=== PATIENT | female | born 1945 | race Caucasian/White ===

== ENCOUNTER 2018-07-06 16:00 | Emergency (ER) | payer MEDICARE ==
[2018-07-06] MEDS ORDERED: HYDROmorphone 0.5 MG/0.5 ML Syringe IVPUSH ONE (17:52)
[2018-07-06] MEDS ORDERED: Ondansetron 4 MG/2 ML SDV IVPUSH ONE (17:52)
[2018-07-06] MEDS ORDERED: Sodium Chloride 0.9% 1,000 ML IV SCH (18:00)
--- NOTE | 2018-07-06 18:29 | CRLCT ---
INDICATION: Abdominal pain and distension. TECHNIQUE: CT abdomen and pelvis without contrast. COMPARISON: None. FINDINGS: Lower chest: Coronary atherosclerosis. Small hiatal hernia with fluid in the distal esophagus suggesting gastroesophageal reflux. Bibasilar discoid atelectasis. Trace right pleural fluid. Liver: Normal in size and attenuation. No masses. Gallbladder and bile ducts: No stones or inflammation. No biliary dilatation. Pancreas: Unremarkable. No mass or inflammation. Spleen: Normal in size. No masses. Adrenal glands: Exophytic left adrenal lesion measuring 2.9 centimeters and 22 Hounsfield units. Kidneys: Bilateral renal cortical thinning without hydronephrosis. Several calcifications both kidneys consistent with nonobstructing nephrolithiasis. Bilateral renal cysts, largest on the left measures 14.2 centimeters. GI tract: The stomach is decompressed. There are loops of mid small bowel in the lower pelvis which are mildly dilated and there appear to be some loops which have some mild bowel wall thickening. Distal to this small bowel is decompressed. Transition point is not well seen on this unenhanced examination however small-bowel dilation appears to be somewhat abrupt both proximally and distally. The colon is decompressed. Note is made of a small amount of ascites. Diffuse haziness and edema is present within the mesentery of the dilated loops of bowel. Vasculature: Atherosclerosis without abdominal aortic aneurysm. Inferior vena cava filter noted. Lymph nodes: No lymphadenopathy. Abdominal wall/Omentum/Peritoneum: Fat containing paraumbilical hernia. Pelvis: Bladder unremarkable. Patient is status posthysterectomy. Bones: Bilateral hip osteoarthritis. Degenerative disc disease lumbar spine. IMPRESSION: 1. Dilated loops of mid small bowel within the low pelvis. A well-defined transition point is not seen, however caliber changes appear to be abrupt both proximally and distally. This combined with the small ascites and haziness in the mesentery of these bowel loops is suggestive of a high-grade, possibly closed loop, small bowel obstruction. 2. Small hiatal hernia with fluid in the distal esophagus suggesting gastroesophageal reflux. 3. Nonobstructing nephrolithiasis. 4. Indeterminate left adrenal nodule. Follow-up adrenal protocol CT recommended in 12 months. Please note that all CT scans at this facility use dose modulation, iterative reconstruction, and/or weight-based dosing when appropriate to reduce radiation dose to as low as reasonably achievable. Dictated by Brian Oconnell MD @ Jul 06 2018 6:16PM Signed by Dr. Brian Oconnell @ Jul 06 2018 6:27PM
--- NOTE | 2018-07-06 18:44 | EDM.PDOC ---
ED HPI GENERAL MEDICAL PROBLEM - General Chief Complaint: Abdominal Pain Stated Complaint: VOMITING,ABDOMINAL PAIN Time Seen by Provider: 07/06/18 17:35 Source of Information: Reports: Patient, Family History Limitations: Reports: No Limitations - History of Present Illness INITIAL COMMENTS - FREE TEXT/NARRATIVE: 72-year-old female with abdominal pain for the past 24 hours. She feels bloated and distended, has had several episodes of emesis. No diarrhea, says her bowels are moving. No chest pain. She has a history of a hysterectomy and appendectomy , no other surgeries. They are also "watching" and abdominal hernia. She's been prepared for dialysis and will have a surgery for a fistula in the left arm in the near future. She also missed her appointment today to check her INR level, she is on Coumadin because of a history of blood clots. Onset: Sudden Duration: Day(s): (Symptoms have been for 1 day, 24 hours) Location: Reports: Abdomen Severity: Moderate Improves with: Reports: None Worsens with: Reports: None Associated Symptoms: Reports: Nausea/Vomiting. Denies: Confusion, Chest Pain, Cough, Fever/Chills, Headaches, Shortness of Breath Abdomen Pain Score (Numeric/FACES): 10 - Related Data Allergies Allergy/AdvReac Type Severity Reaction Status Date / Time No Known Allergies Allergy Verified 07/06/18 17:12 Home Meds: Home Meds Citalopram Hydrobromide [Celexa] 20 mg PO QAM 04/17/13 [History] Metoprolol Tartrate [Lopressor] 50 mg PO BID 04/17/13 [History] Nitroglycerin [Minitran] 1 each TD QAM 04/17/13 [History] Omeprazole 20 mg PO QAM 04/17/13 [History] Simvastatin 40 mg PO BEDTIME 04/17/13 [History] Warfarin Sodium 1 tab PO ASDIRECTED 04/17/13 [History] Calcitriol 3 cap PO DAILY 07/06/18 [History] Cinacalcet [Sensipar] 30 mg PO DAILY 07/06/18 [History] Cyanocobalamin (Vitamin B-12) [Vitamin B-12] 2,000 mcg PO DAILY 07/06/18 [ History] Ergocalciferol (Vitamin D2) [Vitamin D2] 1 cap PO Q7D 07/06/18 [History] Ferrous Sulfate 325 mg PO TID 07/06/18 [History] Sodium Bicarbonate 2 tab PO TID 07/06/18 [History] Past Medical History Cardiovascular History: Reports: Blood Clots/VTE/DVT, Hypertension Gastrointestinal History: Reports: GERD Genitourinary History: Reports: Chronic Renal Insuffiency 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 (See Below) Other GAMBLING CASHIER History: hysterectomy Musculoskeletal History: Reports: Neck Pain, Chronic Neurological History: Reports: Other (See Below) Other Neuro History: neck fracture, no fusion Psychiatric History: Reports: Depression Endocrine/Metabolic History: Reports: Obesity/BMI 30+ Oncologic (Cancer) History: Reports: Uterine - Past Surgical History Head Surgeries/Procedures: Reports: None Cardiovascular Surgical History: Reports: None GI Surgical History: Reports: Appendectomy Female Surgical History: Reports: Other (See Below) Other Female Surgeries/Procedures: shunt placed Musculoskeletal Surgical History: Reports: None Oncologic Surgical History: Reports: Other (See Below) Other Oncologic Surgeries/Procedures: hysterctomy Social & Family History - Tobacco Use Smoking Status *Q: Never Smoker Second Hand Smoke Exposure: No - Caffeine Use Caffeine Use: Reports: Soda, Tea - Recreational Drug Use Recreational Drug Use: No ED ROS GENERAL - Review of Systems Review Of Systems: See Below Constitutional: Reports: Malaise, Decreased Appetite. Denies: Fever, Chills HEENT: Reports: No Symptoms Respiratory: Denies: Shortness of Breath, Cough Cardiovascular: Denies: Chest Pain GI/Abdominal: Reports: Abdominal Pain, Nausea, Vomiting. Denies: Constipation, Diarrhea : Reports: Other (Patient does make urine despite chronic renal failure) Skin: Reports: No Symptoms Neurological: Reports: No Symptoms ED EXAM, GI/ABD - Physical Exam Exam: See Below Exam Limited By: No Limitations General Appearance: Alert, Mild Distress (Patient is fairly uncomfortable) Eyes: Bilateral: Normal Appearance (No jaundice) Respiratory/Chest: No Respiratory Distress, Lungs Clear Cardiovascular: Regular Rate, Rhythm GI/Abdominal Exam: Tender (Diffuse tenderness to palpation with guarding), Abnormal Bowel Sounds (Bowel sounds are very hypoactive) Neurological: Alert, Oriented Course - Vital Signs Last Recorded V/S: Last Vital Signs Temp 96.3 F 07/06/18 19:35 Pulse 64 07/06/18 19:35 Resp 16 07/06/18 19:35 BP 90/56 L 07/06/18 19:35 Pulse Ox 97 07/06/18 19:35 - Orders/Labs/Meds Labs: Laboratory Tests 07/06/18 07/06/18 07/06/18 Range/Units 17:51 17:51 17:51 WBC 11.8 H (4.5-11.0) K/uL RBC 4.14 (3.30-5.50) M/uL Hgb 13.1 (12.0-15.0) g/dL Hct 42.6 (36.0-48.0) % MCV 103 H (80-98) fL MCH 32 H (27-31) pg MCHC 31 L (32-36) % Plt Count 144 L (150-400) K/uL Neut % (Auto) 89 H (36-66) % Lymph % (Auto) 6 L (24-44) % Bureau % (Auto) 4 (2-6) % Eos % (Auto) 0 L (2-4) % Baso % (Auto) 0 (0-1) % PT 16.3 H (9.5-12.0) sec INR 1.52 H D (0.80-1.20) Sodium 139 L (140-148) mmol/L Potassium 5.1 (3.6-5.2) mmol/L Chloride 107 (100-108) mmol/L Carbon Dioxide 16 L (21-32) mmol/L Anion Gap 21.1 H (5.0-14.0) mmol/L BUN 50 H (7-18) mg/dL Creatinine 3.8 H* (0.6-1.0) mg/dL Est Cr Clr Drug Dosing 10.04 mL/min Estimated GFR (MDRD) 12 L (>60) Glucose 291 H (74-106) mg/dL Calcium 10.7 H (8.5-10.1) mg/dL Total Bilirubin 0.3 (0.2-1.0) mg/dL AST 10 L (15-37) U/L ALT 12 (12-78) U/L Alkaline Phosphatase 88 (46-116) U/L Total Protein 6.6 (6.4-8.2) g/dL Albumin 2.8 L (3.4-5.0) g/dL Globulin 3.8 H (2.3-3.5) g/dL Albumin/Globulin Ratio 0.7 L (1.2-2.2) Amylase 51 (25-115) U/L Lipase 90 (73-393) U/L Meds: Medications Discontinued Medications Generic Name Dose Route Start Last Admin Trade Name Yolanda PRN Reason Stop Dose Admin Hydromorphone HCl 0.5 mg 07/06/18 17:52 07/06/18 18:46 Dilaudid IVPUSH 07/06/18 17:53 0.5 mg ONETIME ONE Administration Sodium Chloride 1,000 mls @ 250 mls/hr 07/06/18 18:00 07/06/18 18:56 Normal Saline IV 250 mls/hr ASDIRECTED JAYLEN Administration Ondansetron HCl 4 mg 07/06/18 17:52 07/06/18 18:49 Zofran IVPUSH 07/06/18 17:53 4 mg ONETIME ONE Administration - Re-Assessments/Exams Free Text/Narrative Re-Assessment/Exam: 07/06/18 19:01 An IV was started, the patient was given 0.5 mg of IV Dilaudid and 4 mg of IV Zofran. This markedly helped her symptoms. CBC CMP was obtained, creatinine is 3.5 and GFR only 12. CT the abdomen and pelvis was obtained without contrast. 07/06/18 19:12 CT scan revealed a likely closed loop small bowel obstruction. This was discussed with surgery and the hospitalist service, it was recommended she go where there is dialysis available. She was accepted by doctor Mata at [facility] in [place]. She will be directly admitted and get a surgical consultation at that time. Departure - Departure Time of Disposition: 20:14 Disposition: DC/Tfer to Other 70 Condition: Fair Clinical Impression: Small bowel obstruction Abdominal pain Qualifiers: Abdominal location: generalized Qualified Code(s): R10.84 - Generalized abdominal pain - Discharge Information Instructions: Small Bowel Obstruction, [id number] Referrals: PCP,None [Primary Care Provider] - Forms: ED Department Discharge Care Plan Goals: Patient is to be transferred to [facility] for surgical care, and also nephrology and internal medicine consultations.
[2018-07-06 19:38] VITALS: BP 90/56
== END 2018-07-06 20:02 | disposition other institution (70) ==
LOC: JP.ED 16:00
DX: K56.609 Unspecified intestinal obstruction, unspecified as to partial versus complete obstruction (principal); I12.9 Hypertensive chronic kidney disease with stage 1 through stage 4 chronic kidney disease, or unspecified chronic kidney disease; N18.9 Chronic kidney disease, unspecified; K21.9 Gastro-esophageal reflux disease without esophagitis; Z79.899 Other long term (current) drug therapy
CPT/HCPCS: 36415; 74176; 80053; 82150; 83690; 85025; 85610; 96361; 96374; 96375; 99285; J1170; J2405; J7030

== ENCOUNTER 2018-10-11 20:33 | Emergency (ER) | payer MEDICARE, MEDICAID ==
[2018-10-11] MEDS ORDERED: Sodium Chloride 0.9% 1,000 ML IV SCH (21:15)
[2018-10-11] MEDS ORDERED: Ondansetron 4 MG/2 ML SDV IVPUSH ONE (21:40)
[2018-10-11] MEDS ORDERED: Potassium Chloride 20 MEQ in Premix Bag 1 BAG IV ONE (22:29)
[2018-10-12 00:24] VITALS: BP 90/51; PULSE 83
--- NOTE | 2018-10-12 01:17 | EDM.PDOC ---
ED HPI GENERAL MEDICAL PROBLEM - General Chief Complaint: Syncope Stated Complaint: FAINTED Time Seen by Provider: 10/11/18 20:55 Source of Information: Reports: Patient, Family History Limitations: Reports: No Limitations - History of Present Illness INITIAL COMMENTS - FREE TEXT/NARRATIVE: Pt stood up quickly and she had a brief episode where she blacked out. She did not fall but she did not loose consciouness. Onset: Today, Sudden, Other (pt did have dialysis yesterday and she will be dialized tomorrow. ) Duration: Hour(s): Location: Reports: Head, Generalized, Other (pt has been having 5-6 large loos watery stools. ) Associated Symptoms: Reports: Weakness Denies Pain Score (Numeric/FACES): 0 - Related Data Allergies Allergy/AdvReac Type Severity Reaction Status Date / Time No Known Allergies Allergy Verified 10/11/18 21:40 Home Meds: Home Meds Citalopram Hydrobromide [Celexa] 20 mg PO QAM 04/17/13 [History] Omeprazole 20 mg PO QAM 04/17/13 [History] Simvastatin 40 mg PO BEDTIME 04/17/13 [History] Warfarin Sodium 0.5 tab PO ASDIRECTED 04/17/13 [History] Calcitriol 3 cap PO DAILY 07/06/18 [History] Cinacalcet [Sensipar] 30 mg PO DAILY 07/06/18 [History] Cyanocobalamin (Vitamin B-12) [Vitamin B-12] 2,000 mcg PO DAILY 07/06/18 [ History] Ergocalciferol (Vitamin D2) [Vitamin D2] 1 cap PO Q7D 07/06/18 [History] Ferrous Sulfate 325 mg PO TID 07/06/18 [History] Sodium Bicarbonate 2 tab PO TID 07/06/18 [History] Fludrocortisone [Fludrocortisone Acetate] 0.1 mg PO DAILY 10/11/18 [History] Midodrine 1.5 tab PO BID 10/11/18 [History] Phytonadione [Vitamin K] 200 mcg PO DAILY 10/11/18 [History] Potassium Chloride 20 meq PO DAILY 10/11/18 [History] Simvastatin [Zocor] 1 tab PO DAILY 10/11/18 [History] Past Medical History Cardiovascular History: Reports: Hypertension Respiratory History: Reports: Other (See Below) Other Respiratory History: Blood clot in lung aprox 10 years ago Gastrointestinal History: Reports: GERD Genitourinary History: Reports: Chronic Renal Insuffiency, Dialysis 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 (See Below) Other ROLL INSPECTOR History: hysterectomy Musculoskeletal History: Reports: Neck Pain, Chronic Neurological History: Reports: Other (See Below) Other Neuro History: neck fracture, no fusion Psychiatric History: Reports: Depression Endocrine/Metabolic History: Reports: Obesity/BMI 30+ Hematologic History: Reports: Blood Transfusion(s) Oncologic (Cancer) History: Reports: Uterine - Infectious Disease History Infectious Disease History: Reports: C-Difficile, Measles, Mumps - Past Surgical History GI Surgical History: Reports: Appendectomy, Colonoscopy, Other (See Below) Other GI Surgeries/Procedures: Small bowel obstruction. Major surgery. Female Surgical History: Reports: Other (See Below) Other Female Surgeries/Procedures: shunt placed Musculoskeletal Surgical History: Reports: None Oncologic Surgical History: Reports: Other (See Below) Other Oncologic Surgeries/Procedures: hysterctomy Social & Family History - Tobacco Use Smoking Status *Q: Never Smoker Second Hand Smoke Exposure: No - Caffeine Use Caffeine Use: Reports: Soda, Tea - Recreational Drug Use Recreational Drug Use: No ED ROS GENERAL - Review of Systems Review Of Systems: See Below Constitutional: Reports: No Symptoms HEENT: Reports: No Symptoms Respiratory: Reports: No Symptoms Cardiovascular: Reports: Syncope, Other (pt stood up quickly and she felt like she was going to pass out. ) Endocrine: Reports: No Symptoms GI/Abdominal: Reports: Other (pt did feel nauseated at that time. ) : Reports: No Symptoms Musculoskeletal: Reports: No Symptoms Skin: Reports: No Symptoms - Physical Exam Exam: See Below Text/Narrative:: pT ARRIVED WITH A HISTORY OF A NEAR SYNCOPAL EPISODE. sHE DOES GET LIGHT HEADED ALOT PARTICULARLY AFTER DIALYSIS. sHE DID HAVE DIALYSIS YESTERDAY. sHE HAS BEEN HAVING ALOT OF DIARHEA --5-6 LARGE WATERY STOOLS DAILY. Exam Limited By: No Limitations General Appearance: Alert, Anxious, Mild Distress Ears: Normal TMs Nose: Normal Inspection Throat/Mouth: Normal Inspection, Other (MOUTH DID LOOS VERY DRY. ) Head Exam: Atraumatic Neck: Normal Inspection Respiratory/Chest: No Respiratory Distress Cardiovascular: Regular Rate, Rhythm GI/Abdominal: Soft, Non-Tender (Female) Exam: Other (PT IS DIALIZED 3 TIMES WEEKLY) Rectal (Female) Exam: Deferred Neuro Exam (Abbreviated): Alert, Oriented, Normal Cognition, Other (PT WAS FOUND TO HAVE LOW BP. sHE EVIDENTLY RUNS A LOW BP ALOT. sHE STATES SOMETIMES AT DIALYSIS IT WILL BE IN THE 60S AND 70S SYSTOLICLY. ) Back Exam: Normal Inspection Extremities: Normal Inspection Psychiatric: Normal Affect Course - Vital Signs Last Recorded V/S: Last Vital Signs Temp 36.1 C 10/11/18 23:24 Pulse 83 10/12/18 00:23 Resp 16 10/12/18 00:23 BP 90/51 L 10/12/18 00:23 Pulse Ox 94 L 10/12/18 00:23 - Orders/Labs/Meds Labs: Laboratory Tests 10/11/18 10/11/18 10/11/18 Range/Units 20:38 20:38 20:38 WBC 8.8 (4.5-11.0) K/uL RBC 3.15 L (3.30-5.50) M/uL Hgb 9.9 L D (12.0-15.0) g/dL Hct 30.2 L (36.0-48.0) % MCV 96 (80-98) fL MCH 31 (27-31) pg MCHC 33 (32-36) % Plt Count 111 L (150-400) K/uL Neut % (Auto) 65 (36-66) % Lymph % (Auto) 27 (24-44) % [place] % (Auto) 8 H (2-6) % Eos % (Auto) 0 L (2-4) % Baso % (Auto) 0 (0-1) % PT 14.7 H (9.5-12.0) sec INR 1.36 H (0.80-1.20) Sodium 139 L (140-148) mmol/L Potassium 2.7 L* (3.6-5.2) mmol/L Chloride 100 (100-108) mmol/L Carbon Dioxide 24 (21-32) mmol/L Anion Gap 17.7 H (5.0-14.0) mmol/L BUN 32 H (7-18) mg/dL Creatinine 3.7 H* (0.6-1.0) mg/dL Est Cr Clr Drug Dosing 11.76 mL/min Estimated GFR (MDRD) 12 L (>60) Glucose 118 H (74-106) mg/dL Calcium 8.3 L D (8.5-10.1) mg/dL Total Bilirubin 0.5 D (0.2-1.0) mg/dL AST 24 D (15-37) U/L ALT 22 D (12-78) U/L Alkaline Phosphatase 75 (46-116) U/L Total Protein 4.9 L (6.4-8.2) g/dL Albumin 1.7 L (3.4-5.0) g/dL Globulin 3.2 (2.3-3.5) g/dL Albumin/Globulin Ratio 0.5 L (1.2-2.2) Meds: Medications Discontinued Medications Generic Name Dose Route Start Last Admin Trade Name Freq PRN Reason Stop Dose Admin Sodium Chloride 1,000 mls @ 500 mls/hr 10/11/18 21:15 10/11/18 21:24 Normal Saline IV 500 mls/hr ASDIRECTED JAYLEN Administration Potassium Chloride 20 meq/ 100 mls @ 50 mls/hr 10/11/18 22:29 10/11/18 23:56 Premix IV 10/12/18 00:28 50 mls/hr ONETIME ONE Administration Lidocaine HCl 2 ml 10/11/18 23:31 10/11/18 23:57 Xylocaine-Mpf 1% INJECT 10/11/18 23:32 2 ml ONETIME ONE Administration Ondansetron HCl 4 mg 10/11/18 21:40 10/11/18 22:29 Zofran IVPUSH 10/11/18 21:41 4 mg ONETIME ONE Administration Potassium Chloride 10 meq 10/12/18 01:20 10/12/18 01:43 Potassium Chloride PO 10/12/18 01:21 10 meq ONETIME ONE Administration - Re-Assessments/Exams Free Text/Narrative Re-Assessment/Exam: 10/12/18 01:19 PT WAS GIVEN A LITER OF FLUID. hER K WAS LOW AND NETO WAS GIVEN 20 MEQ IV. PT WILL BE AMBULATED. sHE HAS A drS APPT TOMORROW AND AN APPT FOR DIALYSIS TOMORROW 10/12/18 01:20 Departure - Departure Time of Disposition: 00:20 Disposition: Home, Self-Care 01 Condition: Fair Clinical Impression: Near syncope, Hypotension, Hypokalemia, Dehydration - Discharge Information Instructions: Near-Syncope, Hypokalemia, Dehydration, Elderly, Hypotension Referrals: PCP,None [Primary Care Provider] - Forms: ED Department Discharge Care Plan Goals: DISCHARE TO HOME. keep appts tomorrow for dialsis and at her DrsZina Be sure to share with them regarding what happened today and that she was given fluid and k.
[2018-10-12] MEDS ORDERED: Potassium Chloride 10 MEQ Cap.ER PO ONE (01:20)
== END 2018-10-12 02:01 | disposition home or self-care (01) ==
LOC: JP.ED 20:33
DX: I95.9 Hypotension, unspecified (principal); E87.6 Hypokalemia; E86.0 Dehydration; I10 Essential (primary) hypertension; K21.9 Gastro-esophageal reflux disease without esophagitis; F32.9 Major depressive disorder, single episode, unspecified; Z79.899 Other long term (current) drug therapy; Z79.01 Long term (current) use of anticoagulants; I12.0 Hypertensive chronic kidney disease with stage 5 chronic kidney disease or end stage renal disease; N18.6 End stage renal disease
CPT/HCPCS: 36415; 80053; 83735; 85025; 85610; 96361; 96365; 96366; 96374; 99283; 99284; A9270; J2001; J2405; J3480; J7030

== ENCOUNTER 2018-10-12 17:59 | Emergency (ER) | payer MEDICARE, MEDICAID ==
[2018-10-12] MEDS ORDERED: Sodium Chloride 0.9% 1,000 ML IV ONE (18:27)
[2018-10-12] MEDS ORDERED: Sodium Chloride 0.9% 10 ML Syringe FLUSH PRN (18:29)
[2018-10-12] MEDS ORDERED: Potassium Chloride 20 MEQ in Premix Bag 1 BAG IV ONE (19:18)
[2018-10-12 21:17] VITALS: BP 99/50
--- NOTE | 2018-10-12 21:49 | EDM.PDOC ---
ED HPI GENERAL MEDICAL PROBLEM - General Chief Complaint: Syncope Stated Complaint: SYNCOPAL Time Seen by Provider: 10/12/18 19:45 Source of Information: Reports: Patient, EMS History Limitations: Reports: No Limitations - History of Present Illness INITIAL COMMENTS - FREE TEXT/NARRATIVE: This lady just had dialysis earlier today and when she got out of dialysis without in the car she promptly passed out. She was seen in the ER yesterday and had low blood pressure near syncope and received some fluids. She also had a low potassium yesterday 2. Patient says she feels pretty good now - Related Data Allergies Allergy/AdvReac Type Severity Reaction Status Date / Time No Known Allergies Allergy Verified 10/11/18 21:40 Home Meds: Home Meds Citalopram Hydrobromide [Celexa] 20 mg PO QAM 04/17/13 [History] Omeprazole 20 mg PO QAM 04/17/13 [History] Simvastatin 40 mg PO BEDTIME 04/17/13 [History] Warfarin Sodium 0.5 tab PO ASDIRECTED 04/17/13 [History] Calcitriol 3 cap PO DAILY 07/06/18 [History] Cinacalcet [Sensipar] 30 mg PO DAILY 07/06/18 [History] Cyanocobalamin (Vitamin B-12) [Vitamin B-12] 2,000 mcg PO DAILY 07/06/18 [ History] Ergocalciferol (Vitamin D2) [Vitamin D2] 1 cap PO Q7D 07/06/18 [History] Ferrous Sulfate 325 mg PO TID 07/06/18 [History] Sodium Bicarbonate 2 tab PO TID 07/06/18 [History] Fludrocortisone [Fludrocortisone Acetate] 0.1 mg PO DAILY 10/11/18 [History] Midodrine 1.5 tab PO BID 10/11/18 [History] Phytonadione [Vitamin K] 200 mcg PO DAILY 10/11/18 [History] Potassium Chloride 20 meq PO DAILY 10/11/18 [History] Simvastatin [Zocor] 1 tab PO DAILY 10/11/18 [History] Past Medical History Cardiovascular History: Reports: Hypertension Respiratory History: Reports: Other (See Below) Other Respiratory History: Blood clot in lung aprox 10 years ago Gastrointestinal History: Reports: GERD Genitourinary History: Reports: Chronic Renal Insuffiency, Dialysis 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 (See Below) 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 WAREHOUSE ADMINISTRATOR History: hysterectomy Musculoskeletal History: Reports: Neck Pain, Chronic Neurological History: Reports: Other (See Below) Other Neuro History: neck fracture, no fusion Psychiatric History: Reports: Depression Endocrine/Metabolic History: Reports: Obesity/BMI 30+ Hematologic History: Reports: Blood Transfusion(s) Oncologic (Cancer) History: Reports: Uterine - Infectious Disease History Infectious Disease History: Reports: C-Difficile, Measles, Mumps - Past Surgical History GI Surgical History: Reports: Appendectomy, Colonoscopy, Other (See Below) Other GI Surgeries/Procedures: Small bowel obstruction. Major surgery. Female Surgical History: Reports: Other (See Below) Other Female Surgeries/Procedures: shunt placed Musculoskeletal Surgical History: Reports: None Oncologic Surgical History: Reports: Other (See Below) Other Oncologic Surgeries/Procedures: hysterctomy Social & Family History - Tobacco Use Smoking Status *Q: Never Smoker - Caffeine Use Caffeine Use: Reports: Soda, Tea - Recreational Drug Use Recreational Drug Use: No ED ROS GENERAL - Review of Systems Review Of Systems: ROS reveals no pertinent complaints other than HPI. - Physical Exam Exam: See Below Exam Limited By: No Limitations General Appearance: Alert, No Apparent Distress, Thin Eye Exam: Bilateral Eye: Normal Inspection Nose: Normal Inspection Throat/Mouth: Normal Oropharynx Head Exam: Atraumatic Neck: Normal Inspection Respiratory/Chest: Lungs Clear Cardiovascular: Regular Rate, Rhythm, No Murmur GI/Abdominal: Soft, Non-Tender Neuro Exam (Abbreviated): Alert, Oriented, CN II-XII Intact, No Motor/Sensory Deficits Back Exam: Normal Inspection Extremities: Normal Inspection Psychiatric: Normal Affect Skin Exam: Warm, Dry, Other (Poor skin turgor) Course - Vital Signs Last Recorded V/S: Last Vital Signs Temp 36.1 C 10/12/18 18:14 Pulse 80 10/12/18 21:16 Resp 19 10/12/18 18:26 BP 99/50 L 10/12/18 21:16 Pulse Ox 93 L 10/12/18 18:26 - Orders/Labs/Meds Labs: Laboratory Tests 10/12/18 10/12/18 10/12/18 Range/Units 18:27 18:27 19:22 WBC 14.9 H (4.5-11.0) K/uL RBC 3.25 L (3.30-5.50) M/uL Hgb 10.3 L (12.0-15.0) g/dL Hct 30.9 L (36.0-48.0) % MCV 95 (80-98) fL MCH 32 H (27-31) pg MCHC 33 (32-36) % Plt Count 93 L (150-400) K/uL Neut % (Auto) 81 H (36-66) % Lymph % (Auto) 12 L (24-44) % [place] % (Auto) 7 H (2-6) % Eos % (Auto) 0 L (2-4) % Baso % (Auto) 0 (0-1) % Sodium 135 L (140-148) mmol/L Potassium 2.6 L* (3.6-5.2) mmol/L Chloride 97 L (100-108) mmol/L Carbon Dioxide 29 (21-32) mmol/L Anion Gap 11.6 (5.0-14.0) mmol/L BUN 14 D (7-18) mg/dL Creatinine 2.3 H (0.6-1.0) mg/dL Est Cr Clr Drug Dosing 18.97 mL/min Estimated GFR (MDRD) 21 L (>60) Glucose 142 H (74-106) mg/dL Calcium 8.3 L (8.5-10.1) mg/dL Magnesium 1.3 L (1.8-2.4) mg/dL Total Bilirubin 0.7 (0.2-1.0) mg/dL AST 18 (15-37) U/L ALT 23 (12-78) U/L Alkaline Phosphatase 80 (46-116) U/L Total Protein 5.2 L (6.4-8.2) g/dL Albumin 1.7 L (3.4-5.0) g/dL Globulin 3.5 (2.3-3.5) g/dL Albumin/Globulin Ratio 0.5 L (1.2-2.2) Meds: Medications Discontinued Medications Generic Name Dose Route Start Last Admin Trade Name Freq PRN Reason Stop Dose Admin Sodium Chloride 1,000 mls @ 999 mls/hr 10/12/18 18:27 10/12/18 18:49 Normal Saline IV 10/12/18 19:27 999 mls/hr .BOLUS ONE Administration Potassium Chloride 20 meq/ 100 mls @ 50 mls/hr 10/12/18 19:18 10/12/18 19:23 Premix IV 10/12/18 21:17 50 mls/hr ONETIME ONE Administration Sodium Chloride 10 ml 10/12/18 18:29 10/12/18 18:49 Saline Flush FLUSH 10 ml ASDIRECTED PRN Administration Keep Vein Open - Re-Assessments/Exams Free Text/Narrative Re-Assessment/Exam: 10/14/18 07:02 EKG was unremarkable. An IV was established she was given 1 L IV normal saline. When labs came back we start bolus of the potassium chloride 20 mEq and no 100 mL of D5 W had to be given with a little bit of lidocaine because it to cause some burning. Patient felt much better after she was hydrated.ed a Departure - Departure Time of Disposition: 21:44 Disposition: Home, Self-Care 01 Condition: Fair Clinical Impression: Syncope - Discharge Information Instructions: Syncope Referrals: PCP,None [Primary Care Provider] - Forms: ED Department Discharge Additional Instructions: Continue your usual medications. Eat about 1/2 teaspoon of salt substitute daily (potassium) Eat about 1/2 teaspoon of regular salt every day. That will help you retain fluid. Take magnesium oxide 400 mg twice daily. This helps you hold on to potassium.
== END 2018-10-12 22:03 | disposition home or self-care (01) ==
LOC: JP.ED 17:59
DX: R55 Syncope and collapse (principal); I12.0 Hypertensive chronic kidney disease with stage 5 chronic kidney disease or end stage renal disease; N18.6 End stage renal disease; F32.9 Major depressive disorder, single episode, unspecified; K21.9 Gastro-esophageal reflux disease without esophagitis; Z79.899 Other long term (current) drug therapy; Z79.01 Long term (current) use of anticoagulants
CPT/HCPCS: 36415; 80053; 83735; 85025; 96361; 96365; 96366; 99284; J3480; J7030; 99283

== ENCOUNTER 2018-10-24 17:56 | Emergency (ER) | payer MEDICARE, MEDICAID ==
[2018-10-24 18:22] VITALS: BP 95/54
--- NOTE | 2018-10-24 19:05 | EDM.PDOC ---
ED HPI GENERAL MEDICAL PROBLEM - General Chief Complaint: General Stated Complaint: VIA NORTH Time Seen by Provider: 10/24/18 18:10 Source of Information: Reports: Patient, EMS History Limitations: Reports: No Limitations - History of Present Illness INITIAL COMMENTS - FREE TEXT/NARRATIVE: 72-year-old female on chronic dialysis for renal failure, has been having difficulty with persistent and recurring hypotension during her dialysis runs, apparently she was low today. Dialysis nurses called the fur coat sewer and he asked for her to be transferred to [place] for evaluation. They stopped here in [place] for vital signs and a brief exam to ensure stability. The patient herself is asymptomatic, is having no pain or shortness of breath. Her blood pressure is 97/54. Onset: Unknown/Unsure Associated Symptoms: Reports: Weakness. Denies: Confusion, Fever/Chills, Loss of Appetite denies Pain Score (Numeric/FACES): 0 - Related Data Allergies Allergy/AdvReac Type Severity Reaction Status Date / Time No Known Allergies Allergy Verified 10/24/18 18:08 Home Meds: Home Meds Citalopram Hydrobromide [Celexa] 20 mg PO QAM 04/17/13 [History] Simvastatin 40 mg PO BEDTIME 04/17/13 [History] Warfarin Sodium 0.5 tab PO ASDIRECTED 04/17/13 [History] Calcitriol 3 cap PO DAILY 07/06/18 [History] Cinacalcet [Sensipar] 30 mg PO DAILY 07/06/18 [History] Ferrous Sulfate 325 mg PO TID 07/06/18 [History] Sodium Bicarbonate 2 tab PO TID 07/06/18 [History] Fludrocortisone [Fludrocortisone Acetate] 0.1 mg PO DAILY 10/11/18 [History] Midodrine 1.5 tab PO BID 10/11/18 [History] Phytonadione [Vitamin K] 200 mcg PO DAILY 10/11/18 [History] Potassium Chloride 20 meq PO DAILY 10/11/18 [History] Past Medical History Cardiovascular History: Reports: Hypertension Respiratory History: Reports: Other (See Below) Other Respiratory History: Blood clot in lung aprox 10 years ago Gastrointestinal History: Reports: GERD Genitourinary History: Reports: Chronic Renal Insuffiency, Dialysis 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: 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 (See Below) Other PELLET POST INSPECTOR History: hysterectomy Musculoskeletal History: Reports: Neck Pain, Chronic Neurological History: Reports: Other (See Below) Other Neuro History: neck fracture, no fusion Psychiatric History: Reports: Depression Endocrine/Metabolic History: Reports: Obesity/BMI 30+ Hematologic History: Reports: Blood Transfusion(s) Oncologic (Cancer) History: Reports: Uterine - Infectious Disease History Infectious Disease History: Reports: Chicken Pox, Measles, Mumps - Past Surgical History GI Surgical History: Reports: Appendectomy, Colonoscopy, Other (See Below) Other GI Surgeries/Procedures: Small bowel obstruction. Major surgery. Female Surgical History: Reports: Other (See Below) Other Female Surgeries/Procedures: shunt placed Musculoskeletal Surgical History: Reports: None Oncologic Surgical History: Reports: Other (See Below) Other Oncologic Surgeries/Procedures: hysterctomy Social & Family History - Tobacco Use Smoking Status *Q: Never Smoker Second Hand Smoke Exposure: No - Caffeine Use Caffeine Use: Reports: Soda, Tea - Recreational Drug Use Recreational Drug Use: No ED ROS GENERAL - Review of Systems Review Of Systems: See Below Constitutional: Denies: Fever, Chills Respiratory: Denies: Shortness of Breath Cardiovascular: Denies: Chest Pain, Palpitations GI/Abdominal: Denies: Abdominal Pain Skin: Reports: Bruising (Bruises easily, she has bruises on her arms and on the lateral aspect of the left foot from recent IV starts) Neurological: Denies: Headache Psychiatric: Reports: No Symptoms ED EXAM, GENERAL - Physical Exam Exam: See Below Exam Limited By: No Limitations General Appearance: Alert, No Apparent Distress Eye Exam: Bilateral Eye: EOMI Head: Atraumatic Respiratory/Chest: No Respiratory Distress, Lungs Clear Cardiovascular: Regular Rate, Rhythm GI/Abdominal: Soft, Non-Tender Extremities: Other (She has 1+ pitting edema of the left extremity, trace edema on the right. These are chronic findings.) Neurological: Alert, Oriented Psychiatric: Normal Affect, Normal Mood Skin Exam: Warm, Dry, Other (Several bruises on both extremities, especially the left arm and a bruise on the lateral aspect of her left foot) Course - Vital Signs Last Recorded V/S: Last Vital Signs Temp 96.5 F 10/24/18 18:22 Pulse 86 10/24/18 18:22 Resp 16 10/24/18 18:22 BP 95/54 L 10/24/18 18:22 Pulse Ox 92 L 10/24/18 18:22 - Re-Assessments/Exams Free Text/Narrative Re-Assessment/Exam: 10/24/18 19:04 Phone conversation was made with Claudio and Marilou. Acceptance was made at the emergency room by Dr. Adams, no further workup is necessary at this time as she is stable and needs nephrology evaluation. Transfer was arranged. Departure - Departure Time of Disposition: 20:22 Disposition: DC/Tfer to Other 70 Clinical Impression: Hypotension Qualifiers: Hypotension type: hemodialysis-associated hypotension Qualified Code(s): I95.3 - Hypotension of hemodialysis Renal failure Qualifiers: Renal failure chronicity: chronic Chronic kidney disease stage: on chronic dialysis Qualified Code(s): N18.6 - End stage renal disease - Discharge Information Referrals: Nathan Cage MD [Primary Care Provider] - Forms: ED Department Discharge Care Plan Goals: Patient will be transferred by EMS to [facility] for evaluation of persistent dialysis related hypotension.
== END 2018-10-24 20:21 | disposition other institution (70) ==
LOC: JP.ED 17:56
DX: I95.3 Hypotension of hemodialysis (principal); I12.0 Hypertensive chronic kidney disease with stage 5 chronic kidney disease or end stage renal disease; N18.6 End stage renal disease; Z99.2 Dependence on renal dialysis; F32.9 Major depressive disorder, single episode, unspecified; K21.9 Gastro-esophageal reflux disease without esophagitis; Z79.899 Other long term (current) drug therapy
CPT/HCPCS: 99285

== ENCOUNTER 2018-12-13 13:53 | Emergency (ER) | payer MEDICARE, MEDICAID ==
[2018-12-13] MEDS ORDERED: Sodium Chloride 0.9% 1,000 ML IV ONE ×2 (15:27→17:36)
[2018-12-13] MEDS ORDERED: Sodium Chloride 0.9% 10 ML Syringe FLUSH PRN (15:27)
[2018-12-13] MEDS ORDERED: cefTRIAXone 1 GM in Sodium Chloride 0.9% 50 ML IV ONE (18:06)
[2018-12-13 18:22] VITALS: BP 115/61; PULSE 90
--- NOTE | 2018-12-13 18:25 | EDM.PDOC ---
ED HPI GENERAL MEDICAL PROBLEM - General Chief Complaint: Syncope Stated Complaint: VIA NORTH Time Seen by Provider: 12/13/18 15:15 Source of Information: Reports: Patient History Limitations: Reports: No Limitations - History of Present Illness INITIAL COMMENTS - FREE TEXT/NARRATIVE: This patient had dialysis yesterday. Today she was at home and the family was helping her use a walker when she stood up she seemed to nearly pass out. She was incontinent of stool at the same time. This is happened in the past with low blood pressures after dialysis. She was recently hospitalized in [place] for several days for this. She takes Midodrin and Florinef for the low blood pressures. Dr Noland at [facility] in [place] checked medical records and found that this lady seems to have a baseline blood pressure in the 70s. However she usually doesn't pass out when she stands up. This lady does not have any kind of symptoms of a UTI - Related Data Allergies Allergy/AdvReac Type Severity Reaction Status Date / Time No Known Allergies Allergy Verified 10/24/18 18:08 Home Meds: Home Meds Citalopram Hydrobromide [Celexa] 20 mg PO QAM 04/17/13 [History] Simvastatin 40 mg PO BEDTIME 04/17/13 [History] Warfarin Sodium 0.5 tab PO ASDIRECTED 04/17/13 [History] Cinacalcet [Sensipar] 30 mg PO BEDTIME 07/06/18 [History] Fludrocortisone [Fludrocortisone Acetate] 0.1 mg PO DAILY 10/11/18 [History] Midodrine 1.5 tab PO BID 10/11/18 [History] Phytonadione [Vitamin K] 200 mcg PO DAILY 10/11/18 [History] Magnesium Oxide 400 mg PO DAILY 12/13/18 [History] Ondansetron HCl [Ondansetron] 4 mg PO Q6H PRN 12/13/18 [History] Past Medical History Cardiovascular History: Reports: Hypertension Respiratory History: Reports: Other (See Below) Other Respiratory History: Blood clot in lung aprox 10 years ago Gastrointestinal History: Reports: GERD Genitourinary History: Reports: Chronic Renal Insuffiency, Dialysis Other Genitourinary History: dialysis x 3 days 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: Other (See Below) Other TAX SENIOR ASSOCIATE History: hysterectomy Musculoskeletal History: Reports: Neck Pain, Chronic Neurological History: Reports: Other (See Below) Other Neuro History: neck fracture, no fusion Psychiatric History: Reports: Depression Endocrine/Metabolic History: Reports: Obesity/BMI 30+ Hematologic History: Reports: Blood Transfusion(s) Oncologic (Cancer) History: Reports: Uterine - Infectious Disease History Infectious Disease History: Reports: Chicken Pox, Measles, Mumps - Past Surgical History GI Surgical History: Reports: Appendectomy, Colonoscopy, Other (See Below) Other GI Surgeries/Procedures: Small bowel obstruction. Major surgery. Female Surgical History: Reports: Other (See Below) Other Female Surgeries/Procedures: shunt placed Musculoskeletal Surgical History: Reports: None Oncologic Surgical History: Reports: Other (See Below) Other Oncologic Surgeries/Procedures: hysterctomy Social & Family History - Tobacco Use Smoking Status *Q: Never Smoker - Caffeine Use Caffeine Use: Reports: Soda, Tea - Recreational Drug Use Recreational Drug Use: No ED ROS GENERAL - Review of Systems Review Of Systems: See Below Constitutional: Reports: No Symptoms HEENT: Reports: No Symptoms Respiratory: Reports: No Symptoms Cardiovascular: Reports: No Symptoms Endocrine: Reports: No Symptoms GI/Abdominal: Reports: No Symptoms : Reports: No Symptoms Musculoskeletal: Reports: No Symptoms Skin: Reports: No Symptoms Neurological: Reports: Syncope Psychiatric: Reports: No Symptoms Hematologic/Lymphatic: Reports: No Symptoms - Physical Exam Exam: See Below Exam Limited By: No Limitations General Appearance: Alert, No Apparent Distress (This lady patient he looks pretty good she is talkative and smiling does not look like a septic patient), Thin Eye Exam: Bilateral Eye: EOMI, PERRL Ears: Normal External Exam Nose: Normal Inspection Throat/Mouth: Normal Inspection Head Exam: Atraumatic Neck: Normal Inspection, Other (She has a central line and a looks like the right jugular.) Respiratory/Chest: No Respiratory Distress Cardiovascular: Normal Peripheral Pulses, Regular Rate, Rhythm GI/Abdominal: Normal Bowel Sounds Neuro Exam (Abbreviated): Alert, Oriented, CN II-XII Intact, Normal Cognition, No Motor/Sensory Deficits Extremities: Normal Inspection Psychiatric: Normal Affect Skin Exam: Warm, Dry Course - Vital Signs Last Recorded V/S: Last Vital Signs Temp 35.6 C 12/13/18 14:19 Pulse 90 12/13/18 18:22 Resp 21 H 07/30/19 18:22 BP 115/61 12/13/18 18:22 Pulse Ox 100 12/13/18 18:22 - Orders/Labs/Meds Orders: Active Orders 24 hr Category Date Time Status EKG Documentation Completion [RC] ASDIRECTED Care 12/13/18 15:28 Active CULTURE URINE [RM] Stat Lab 12/13/18 17:00 Received LACTIC ACID [CHEM] Stat Lab 12/13/18 18:00 Ordered Sodium Chloride 0.9% [Normal Saline] 1,000 ml Med 12/13/18 17:36 Active IV .BOLUS Sodium Chloride 0.9% [Saline Flush] Med 12/13/18 15:27 Active 10 ml FLUSH ASDIRECTED PRN cefTRIAXone [Rocephin] 1 gm Med 12/13/18 18:06 Active Sodium Chloride 0.9% [Normal Saline] 50 ml IV ONETIME Saline Lock Insert [OM.PC] Urgent Oth 12/13/18 15:27 Ordered EKG 12 Lead [EK] Urgent Ther 12/13/18 15:27 Ordered Medication Orders Sodium Chloride (Normal Saline) 1,000 mls @ 999 mls/hr IV .BOLUS ONE Stop: 12/13/18 18:36 Last Admin: 12/13/18 17:39 Dose: 999 mls/hr Ceftriaxone Sodium 1 gm/ (Sodium Chloride) 50 mls @ 100 mls/hr IV ONETIME ONE Stop: 12/13/18 18:35 Sodium Chloride (Saline Flush) 10 ml FLUSH ASDIRECTED PRN PRN Reason: Keep Vein Open Last Admin: 12/13/18 15:45 Dose: 10 ml Labs: Laboratory Tests 12/13/18 12/13/18 12/13/18 Range/Units 15:49 15:49 16:38 WBC 16.4 H (4.5-11.0) K/uL RBC 3.26 L (3.30-5.50) M/uL Hgb 10.2 L (12.0-15.0) g/dL Hct 31.4 L (36.0-48.0) % MCV 96 (80-98) fL MCH 31 (27-31) pg MCHC 33 (32-36) % Plt Count 108 L (150-400) K/uL Neut % (Auto) 85 H (36-66) % Lymph % (Auto) 9 L (24-44) % [place] % (Auto) 6 (2-6) % Eos % (Auto) 0 L (2-4) % Baso % (Auto) 0 (0-1) % Sodium 135 L (140-148) mmol/L Potassium 3.5 L (3.6-5.2) mmol/L Chloride 97 L (100-108) mmol/L Carbon Dioxide 28 (21-32) mmol/L Anion Gap 13.5 (5.0-14.0) mmol/L BUN 20 H (7-18) mg/dL Creatinine 2.9 H (0.6-1.0) mg/dL Est Cr Clr Drug Dosing 14.70 mL/min Estimated GFR (MDRD) 16 L (>60) Glucose 75 (74-106) mg/dL Calcium 9.1 (8.5-10.1) mg/dL Total Bilirubin 0.4 (0.2-1.0) mg/dL AST 29 (15-37) U/L ALT 35 (12-78) U/L Alkaline Phosphatase 108 (46-116) U/L Total Protein 4.2 L (6.4-8.2) g/dL Albumin 1.2 L (3.4-5.0) g/dL Globulin 3.0 (2.3-3.5) g/dL Albumin/Globulin Ratio 0.4 L (1.2-2.2) Urine Color Yellow Urine Appearance Turbid Urine pH 8.0 (4.5-8.0) Ur Specific New Site 1.005 L (1.008-1.030) Urine Protein 100 H (NEGATIVE) mg/dL Urine Glucose (UA) Normal (NEGATIVE) mg/dL Urine Ketones Negative (NEGATIVE) mg/dL Urine Occult Blood Large (NEGATIVE) Urine Nitrite Positive H (NEGATIVE) Urine Bilirubin Negative (NEGATIVE) Urine Urobilinogen Normal (NORMAL) mg/dL Ur Leukocyte Esterase Large (NEGATIVE) Urine RBC Packed H (0-5) Urine WBC Packed H (0-5) Ur Epithelial Cells Not seen Amorphous Sediment Not seen Urine Bacteria Many Urine Mucus Not seen Urine Opiates Screen (NEGATIVE) Ur Oxycodone Screen (NEGATIVE) Urine Methadone Screen (NEGATIVE) Ur Propoxyphene Screen (NEGATIVE) Ur Barbiturates Screen (NEGATIVE) Ur Tricyclics Screen (NEGATIVE) Ur Phencyclidine Scrn (NEGATIVE) Ur Amphetamine Screen (NEGATIVE) U Methamphetamines Scrn (NEGATIVE) Urine MDMA Screen (NEGATIVE) U Benzodiazepines Scrn (NEGATIVE) U Cocaine Metab Screen (NEGATIVE) U Marijuana (THC) Screen (NEGATIVE) 12/13/18 Range/Units 16:38 WBC (4.5-11.0) K/uL RBC (3.30-5.50) M/uL Hgb (12.0-15.0) g/dL Hct (36.0-48.0) % MCV (80-98) fL MCH (27-31) pg MCHC (32-36) % Plt Count (150-400) K/uL Neut % (Auto) (36-66) % Lymph % (Auto) (24-44) % [place] % (Auto) (2-6) % Eos % (Auto) (2-4) % Baso % (Auto) (0-1) % Sodium (140-148) mmol/L Potassium (3.6-5.2) mmol/L Chloride (100-108) mmol/L Carbon Dioxide (21-32) mmol/L Anion Gap (5.0-14.0) mmol/L BUN (7-18) mg/dL Creatinine (0.6-1.0) mg/dL Est Cr Clr Drug Dosing mL/min Estimated GFR (MDRD) (>60) Glucose (74-106) mg/dL Calcium (8.5-10.1) mg/dL Total Bilirubin (0.2-1.0) mg/dL AST (15-37) U/L ALT (12-78) U/L Alkaline Phosphatase (46-116) U/L Total Protein (6.4-8.2) g/dL Albumin (3.4-5.0) g/dL Globulin (2.3-3.5) g/dL Albumin/Globulin Ratio (1.2-2.2) Urine Color Urine Appearance Urine pH (4.5-8.0) Ur Specific New Site (1.008-1.030) Urine Protein (NEGATIVE) mg/dL Urine Glucose (UA) (NEGATIVE) mg/dL Urine Ketones (NEGATIVE) mg/dL Urine Occult Blood (NEGATIVE) Urine Nitrite (NEGATIVE) Urine Bilirubin (NEGATIVE) Urine Urobilinogen (NORMAL) mg/dL Ur Leukocyte Esterase (NEGATIVE) Urine RBC (0-5) Urine WBC (0-5) Ur Epithelial Cells Amorphous Sediment Urine Bacteria Urine Mucus Urine Opiates Screen Negative (NEGATIVE) Ur Oxycodone Screen Negative (NEGATIVE) Urine Methadone Screen Negative (NEGATIVE) Ur Propoxyphene Screen Negative (NEGATIVE) Ur Barbiturates Screen Negative (NEGATIVE) Ur Tricyclics Screen Negative (NEGATIVE) Ur Phencyclidine Scrn Negative (NEGATIVE) Ur Amphetamine Screen Negative (NEGATIVE) U Methamphetamines Scrn Negative (NEGATIVE) Urine MDMA Screen Negative (NEGATIVE) U Benzodiazepines Scrn Negative (NEGATIVE) U Cocaine Metab Screen Negative (NEGATIVE) U Marijuana (THC) Screen Negative (NEGATIVE) Meds: Medications Generic Name Dose Route Start Last Admin Trade Name Freq PRN Reason Stop Dose Admin Sodium Chloride 1,000 mls @ 999 mls/hr 12/13/18 17:36 12/13/18 17:39 Normal Saline IV 12/13/18 18:36 999 mls/hr .BOLUS ONE Administration Ceftriaxone Sodium 1 gm/ 50 mls @ 100 mls/hr 12/13/18 18:06 Sodium Chloride IV 12/13/18 18:35 ONETIME ONE Sodium Chloride 10 ml 12/13/18 15:27 12/13/18 15:45 Saline Flush FLUSH 10 ml ASDIRECTED PRN Administration Keep Vein Open Discontinued Medications Generic Name Dose Route Start Last Admin Trade Name Freq PRN Reason Stop Dose Admin Sodium Chloride 1,000 mls @ 999 mls/hr 12/13/18 15:27 12/13/18 15:46 Normal Saline IV 12/13/18 16:27 999 mls/hr .BOLUS ONE Administration - Re-Assessments/Exams Free Text/Narrative Re-Assessment/Exam: 12/13/18 18:24 She received 1 L of IV normal saline and that brought her blood pressure up into the 90s briefly but then dropped back into the 70s. We've started a second liter of IV fluid. Her urine came back showing packed with RBCs and WBCs. I spoke with Dr. Noland at [facility] in [place] and he requested that I go ahead and start some Rocephin. A lactic acid initially is pending the patient has been accepted transfer to [place] but they would like her blood pressure in the 90s. Her last blood pressure is 115/61. Patient is being turned over to Dr. Mcelroy at this time 12/13/18 18:26 Departure - Departure Time of Disposition: 18:27 Disposition: DC/Tfer to Acute Hospital [facility] Clinical Impression: Near syncope, Status post dialysis, Urinary tract infection - Discharge Information Referrals: Nathan Cage MD [Primary Care Provider] - Forms: ED Department Discharge - My Orders Last 24 Hours: My Active Orders 12/13/18 15:27 Sodium Chloride 0.9% [Saline Flush] 10 ml FLUSH ASDIRECTED PRN Saline Lock Insert [OM.PC] Urgent EKG 12 Lead [EK] Urgent 12/13/18 15:28 EKG Documentation Completion [RC] ASDIRECTED 12/13/18 17:00 CULTURE URINE [RM] Stat 12/13/18 17:36 Sodium Chloride 0.9% [Normal Saline] 1,000 ml IV .BOLUS 12/13/18 18:00 LACTIC ACID [CHEM] Stat 12/13/18 18:06 cefTRIAXone [Rocephin] 1 gm Sodium Chloride 0.9% [Normal Saline] 50 ml IV ONETIME - Assessment/Plan Last 24 Hours: My Active Orders 12/13/18 15:27 Sodium Chloride 0.9% [Saline Flush] 10 ml FLUSH ASDIRECTED PRN Saline Lock Insert [OM.PC] Urgent EKG 12 Lead [EK] Urgent 12/13/18 15:28 EKG Documentation Completion [RC] ASDIRECTED 12/13/18 17:00 CULTURE URINE [RM] Stat 12/13/18 17:36 Sodium Chloride 0.9% [Normal Saline] 1,000 ml IV .BOLUS 12/13/18 18:00 LACTIC ACID [CHEM] Stat 12/13/18 18:06 cefTRIAXone [Rocephin] 1 gm Sodium Chloride 0.9% [Normal Saline] 50 ml IV ONETIME
== END 2018-12-13 19:40 ==
LOC: JP.ED 13:53
DX: N39.0 Urinary tract infection, site not specified (principal); R55 Syncope and collapse; I12.0 Hypertensive chronic kidney disease with stage 5 chronic kidney disease or end stage renal disease; N18.6 End stage renal disease; K21.9 Gastro-esophageal reflux disease without esophagitis; F32.9 Major depressive disorder, single episode, unspecified; Z99.2 Dependence on renal dialysis; Z79.899 Other long term (current) drug therapy; Z79.01 Long term (current) use of anticoagulants
CPT/HCPCS: 36415; 80053; 80305; 81001; 83605; 85025; 87086; 93005; 96361; 96365; 99284; J0696; J7030; J7050; 87088; 87186; 93010; 99283

== ENCOUNTER 2018-12-26 18:00 | Emergency (ER) | payer MEDICARE, MEDICAID ==
--- NOTE | 2018-12-26 18:09 | EDM.PDOC ---
ED HPI GENERAL MEDICAL PROBLEM - General Chief Complaint: General Stated Complaint: brought over from [facility] Time Seen by Provider: 12/26/18 18:31 Source of Information: Reports: Patient, Family History Limitations: Reports: No Limitations - History of Present Illness INITIAL COMMENTS - FREE TEXT/NARRATIVE: 73 years old female patient with history of end-stage renal disease, dialysis was brought in by ambulance from the dialysis unit because she was felt to be a slightly lethargic. She did not finish her dialysis run. She did only 2 hours out of 5. He does Wednesday and Wednesday. Patient is here denying any chest pain or shortness of breath. Denies any headache or visual changes. Mild dry cough for a few days. And eyes any fever. Denies any abdominal pain diarrhea or constipation. Denies any urinary symptom. Denies any focal weakness or numbness anywhere. Bilateral Leg Pain Score (Numeric/FACES): 10 - Related Data Allergies Allergy/AdvReac Type Severity Reaction Status Date / Time No Known Allergies Allergy Verified 10/24/18 18:08 Home Meds: Home Meds Citalopram Hydrobromide [Celexa] 20 mg PO QAM 04/17/13 [History] Simvastatin 40 mg PO BEDTIME 04/17/13 [History] Warfarin Sodium 0.5 tab PO ASDIRECTED 04/17/13 [History] Cinacalcet [Sensipar] 30 mg PO BEDTIME 07/06/18 [History] Fludrocortisone [Fludrocortisone Acetate] 0.1 mg PO DAILY 10/11/18 [History] Midodrine 1.5 tab PO BID 10/11/18 [History] Phytonadione [Vitamin K] 200 mcg PO DAILY 10/11/18 [History] Magnesium Oxide 400 mg PO DAILY 12/13/18 [History] Ondansetron HCl [Ondansetron] 4 mg PO Q6H PRN 12/13/18 [History] Past Medical History Cardiovascular History: Reports: Hypertension Respiratory History: Reports: Other (See Below) Other Respiratory History: Blood clot in lung aprox 10 years ago Gastrointestinal History: Reports: GERD Genitourinary History: Reports: Chronic Renal Insuffiency, Dialysis Other Genitourinary History: dialysis x 3 days SEAM HAMMERER History: Reports: Other (See Below) Other SEAM HAMMERER History: hysterectomy Musculoskeletal History: Reports: Neck Pain, Chronic Neurological History: Reports: Other (See Below) Other Neuro History: neck fracture, no fusion Psychiatric History: Reports: Depression Endocrine/Metabolic History: Reports: Obesity/BMI 30+ Hematologic History: Reports: Blood Transfusion(s) Oncologic (Cancer) History: Reports: Uterine - Infectious Disease History Infectious Disease History: Reports: Chicken Pox, Measles, Mumps - Past Surgical History GI Surgical History: Reports: Appendectomy, Colonoscopy, Other (See Below) Other GI Surgeries/Procedures: Small bowel obstruction. Major surgery. Female Surgical History: Reports: Other (See Below) Other Female Surgeries/Procedures: shunt placed Musculoskeletal Surgical History: Reports: None Oncologic Surgical History: Reports: Other (See Below) Other Oncologic Surgeries/Procedures: hysterctomy Social & Family History - Caffeine Use Caffeine Use: Reports: Soda, Tea ED ROS GENERAL - Review of Systems Review Of Systems: ROS reveals no pertinent complaints other than HPI. ED EXAM, GENERAL - Physical Exam Exam: See Below Exam Limited By: No Limitations General Appearance: Alert, WD/WN, No Apparent Distress Ears: Normal External Exam, Normal Canal, Hearing Grossly Normal, Normal TMs Nose: Normal Inspection, Normal Mucosa, No Blood Throat/Mouth: Normal Inspection, Normal Lips, Normal Teeth, Normal Gums, Normal Oropharynx, Normal Voice, No Airway Compromise Head: Atraumatic, Normocephalic Neck: Normal Inspection, Supple, Non-Tender, Full Range of Motion Respiratory/Chest: No Respiratory Distress, Lungs Clear, Normal Breath Sounds, No Accessory Muscle Use, Chest Non-Tender Cardiovascular: Normal Peripheral Pulses, Regular Rate, Rhythm, No Edema, No Gallop, No JVD, No Murmur, No Rub GI/Abdominal: Normal Bowel Sounds, Soft, Non-Tender, No Organomegaly, No Distention, No Abnormal Bruit, No Mass Neurological: Alert, Oriented, CN II-XII Intact, Normal Cognition, Normal Gait, Normal Reflexes, No Motor/Sensory Deficits Course - Vital Signs Last Recorded V/S: Last Vital Signs Temp 35.4 C 12/26/18 18:03 Pulse 78 12/26/18 18:03 Resp 18 12/26/18 18:03 BP 116/72 12/26/18 19:22 Pulse Ox 98 12/26/18 18:03 - Orders/Labs/Meds Orders: Active Orders 24 hr Category Date Time Status Cardiac Monitoring [RC] .As Directed Care 12/26/18 18:07 Active EKG Documentation Completion [RC] ASDIRECTED Care 12/26/18 18:08 Active C-REACTIVE PROTEIN [CHEM] Stat Lab 12/26/18 18:06 Ordered CBC WITH AUTO DIFF [HEME] Stat Lab 12/26/18 18:06 Ordered COMPREHENSIVE METABOLIC PN,CMP [CHEM] Stat Lab 12/26/18 18:06 Ordered LACTIC ACID [CHEM] Stat Lab 12/26/18 18:06 Ordered LIPASE [CHEM] Stat Lab 12/26/18 18:06 Ordered PRO B-TYPE NATRIUR PEPT,BNPPRO [CHEM] Stat Lab 12/26/18 18:06 Ordered TROPONIN I [CHEM] Stat Lab 12/26/18 18:06 Ordered UA W/MICROSCOPIC [URIN] Stat Lab 12/26/18 18:06 Ordered EKG 12 Lead [EK] Stat Ther 12/26/18 18:08 Ordered - Radiology Interpretation Free Text/Narrative:: Patient was seen and examined immediately on arrival. Stable on vehicle monitor technician. Lab and imaging ordered. Unfortunately around to get an IV and. Were not able to draw any lab. We did a bedside glucometer and was 67 and patient was given some juice. EKG shows no sign of acute ischemia or arrhythmia. Chest x -ray did not show any acute infiltrates. I did consulted with hospitalist air transport professionals at [facility] Dr. Lucas and he accepted the transfer for further management. Patient agrees with the plan. Stable for transfer. Departure - Departure Time of Disposition: 19:41 Disposition: DC/Tfer to Acute Hospital 02 Condition: Fair Clinical Impression: End stage renal disease on dialysis, Near syncope, Hypoglycemia - Discharge Information Referrals: Tamiko Rodriguez MD [Primary Care Provider] - Forms: ED Department Discharge - My Orders Last 24 Hours: My Active Orders 12/26/18 18:06 C-REACTIVE PROTEIN [CHEM] Stat CBC WITH AUTO DIFF [HEME] Stat COMPREHENSIVE METABOLIC PN,CMP [CHEM] Stat LACTIC ACID [CHEM] Stat LIPASE [CHEM] Stat PRO B-TYPE NATRIUR PEPT,BNPPRO [CHEM] Stat TROPONIN I [CHEM] Stat UA W/MICROSCOPIC [URIN] Stat 12/26/18 18:07 Cardiac Monitoring [RC] .As Directed 12/26/18 18:08 EKG Documentation Completion [RC] ASDIRECTED EKG 12 Lead [EK] Stat - Assessment/Plan Last 24 Hours: My Active Orders 12/26/18 18:06 C-REACTIVE PROTEIN [CHEM] Stat CBC WITH AUTO DIFF [HEME] Stat COMPREHENSIVE METABOLIC PN,CMP [CHEM] Stat LACTIC ACID [CHEM] Stat LIPASE [CHEM] Stat PRO B-TYPE NATRIUR PEPT,BNPPRO [CHEM] Stat TROPONIN I [CHEM] Stat UA W/MICROSCOPIC [URIN] Stat 12/26/18 18:07 Cardiac Monitoring [RC] .As Directed 12/26/18 18:08 EKG Documentation Completion [RC] ASDIRECTED EKG 12 Lead [EK] Stat Plan: Transfer to [facility]
[2018-12-26 18:58] VITALS: PULSE 78
[2018-12-26 19:23] VITALS: BP 116/72
--- NOTE | 2018-12-26 19:28 | CRLCR ---
INDICATION: Chest pain TECHNIQUE: Chest 1 view. COMPARISON: None FINDINGS: Cardiovascular and mediastinum: Heart size and vasculature are normal in caliber and appearance. Mediastinum is within normal limits. Right-sided dual tipped central line tip terminates in the mid SVC and cavoatrial junction. Lungs and pleural space: Lungs are clear. No sign of infiltrate or mass. Small left pleural effusion. No pneumothorax. Bones and soft tissues: No significant findings. IMPRESSION: Small left pleural effusion. Dictated by Edward Pinedo MD @ 12/26/2018 7:27:45 PM Dictated by: Edward Pinedo MD @ 12/26/2018 19:27:48 (Electronically Signed)
== END 2018-12-26 19:35 ==
LOC: JP.ED 18:00
DX: I12.0 Hypertensive chronic kidney disease with stage 5 chronic kidney disease or end stage renal disease (principal); N18.6 End stage renal disease; E16.2 Hypoglycemia, unspecified; F32.9 Major depressive disorder, single episode, unspecified; K21.9 Gastro-esophageal reflux disease without esophagitis; Z99.2 Dependence on renal dialysis; Z79.899 Other long term (current) drug therapy; Z79.01 Long term (current) use of anticoagulants
CPT/HCPCS: 71045; 93005; 93010; 99285; 99285-25